=== PATIENT | female | born 1935 | race Caucasian/White ===

== ENCOUNTER 2017-04-19 23:21 | Inpatient (IN) | payer OTHER ==
[~2017-04-19] VITALS: Ht 152.4 cm; Wt 41.7 kg
[2017-04-19 23:40] LABS: CREATININE 1.5 mg/dL (0.6-1.3); POTASSIUM 4.3 mEq/L (3.7-5.4)
[2017-04-19 23:42] LABS: POINT-OF-CARE METER ID UU13113747
[2017-04-19 23:56] LABS: INTER. NORMALIZED RATIO 0.9
[2017-04-19 23:59] LABS: PTT 30.1 SEC (25-37)
[2017-04-20 00:06] LABS: EOSINOPHIL (%) 10.9 % (0-5); IMMATURE GRANULOCYTE (%) 0.2 % (0.0-0.7); INSTRUMENT ABS NEUTROPHIL CT 5.3 K/uL; LYMPHOCYTE COUNT 1.9 K/uL (1.0-2.8); MCH 30.8 PG (29.0-34.0); MCHC 32.8 G/DL (30.0-36.0); MCV 94.2 FL (83-99); MONOCYTE (%) 8.1 % (3-12); MONOCYTE COUNT 0.7 K/uL (0-0.8); NEUTROPHIL (%) 59.7 % (45-76); NEUTROPHIL COUNT 5.3 K/uL (1.8-6.4); PLATELET COUNT 208 K/uL (156-360); RBC DIS.WIDTH-SD 51.5 % (39-53); RED BLOOD COUNT 3.08 M/uL (3.80-5.20); WHITE BLOOD COUNT 8.9 K/uL (4.1-10.2)
[2017-04-20 00:09] LABS: TROP-I INTERPRETATION NEGATIVE; TROPONIN-I < 0.01 ng/mL (0.0-0.30)
[2017-04-20 00:17] LABS: CHLORIDE 108 mEq/L (99-109); POTASSIUM 4.4 mEq/L (3.7-5.4); SODIUM 142 mEq/L (136-147)
[2017-04-20 00:19] LABS: GLUCOSE 115 mg/dL (70-99)
[2017-04-20 00:20] LABS: ANION GAP 12 MEQ/L (2-14)
[2017-04-20 00:23] LABS: GFR ESTIMATE (CALCULATED) 38 mL/min/
[2017-04-20 00:24] LABS: UREA NITROGEN (BUN) 32 mg/dL (9-23)
[2017-04-20 01:44] LABS: HDL CHOLESTEROL 52 MG/DL (Desirable>=50); LDL CHOLESTEROL 53 mg/dL (Desirable<100); NON-HDL CHOLESTEROL 77 mg/dL (Desirable<160); TOTAL CHOLESTEROL 129 mg/dL (Desirable<200); TRIGLYCERIDES 118 MG/DL (Normal: <150)
[2017-04-20 07:15] LABS: Estimated Average Glucose 148 mg/dL (70-123); HEMOGLOBIN A1c (GLYCOHEMOGLOB) 6.8 % HGB (Below 5.7)
[2017-04-20 07:25] VITALS: BP 153/68
[2017-04-20 09:33] LABS: HEMATOCRIT 34.9 % (36.0-46.0); MCH 31.9 PG (29.0-34.0); MCHC 33.8 G/DL (30.0-36.0); MCV 94.3 FL (83-99); MEAN PLAT.VOLUME 11.5 uM^3 (9.5-12.4); PLATELET COUNT 248 K/uL (156-360); RBC DIS.WIDTH-CV 14.9 % (11.8-14.6); RBC DIS.WIDTH-SD 51.5 % (39-53); WHITE BLOOD COUNT 10.7 K/uL (4.1-10.2)
[2017-04-20 09:41] LABS: ANION GAP 9 MEQ/L (2-14); CHLORIDE 103 MEQ/L (99-109); GFR ESTIMATE (CALCULATED) 42 mL/min/; GLUCOSE 106 mg/dL (70-99); POTASSIUM 3.9 MEQ/L (3.7-5.4); SAMPLE HEMOLYSIS CHECK 0; SAMPLE ICTERIC CHECK 0; SAMPLE LIPEMIA CHECK 0; SODIUM 141 MEQ/L (136-147); UREA NITROGEN (BUN) 25 mg/dL (9-23)
[2017-04-20 10:53] LABS: BASE EXCESS 3.5 mEq/L (-3 to +3); BICARBONATE 28.5 mEq/L (22-26); CARBOXY HGB 1.1 % (0-5); COMMENTS - BLOOD GASES A+C+; FI02 0.21 %; METHEMOGLOBIN 1.2 % (0-1.5); PCO2 44 mm Hg (35-45); PO2 81 mm Hg (80-100); SITE RR; pH 7.42 (7.35-7.45)
[2017-04-20 11:38] VITALS: BP 167/77
[2017-04-20] MEDS ORDERED: ASPIRIN81 M2 PO (13:46)
[2017-04-20] MEDS ORDERED: LIPITOR80 MG PO (13:46)
[2017-04-20] MEDS ORDERED: NORVASC5 MG PO (13:46)
[2017-04-20] MEDS ORDERED: DEPAKOTE ER250 MG PO (13:47)
[2017-04-20] MEDS ORDERED: COLACE100 MG PO (13:47)
[2017-04-20] MEDS ORDERED: BISOPROLOL FUMAR5 MG PO (13:47)
[2017-04-20] MEDS ORDERED: ARICEPT10 MG PO (13:48)
[2017-04-20] MEDS ORDERED: ZETIA10 MG PO (13:48)
[2017-04-20] MEDS ORDERED: ATIVAN0.5 MG PO (13:48)
[2017-04-20] MEDS ORDERED: LAMICTAL150 M1 PO (13:48)
[2017-04-20] MEDS ORDERED: MELATONIN5 M1 PO (13:49)
[2017-04-20] MEDS ORDERED: DAILY VITE1 EAC1 PO (13:50)
[2017-04-20] MEDS ORDERED: TYLENOL REGULA325 MG PO (13:50)
[2017-04-20] MEDS ORDERED: CALMOSEPTINE O3.5 GM TP (13:50)
[2017-04-20 15:35] LABS: ADD MIUA? NO; BILIRUBIN NEGATIVE; BLOOD NEGATIVE; COLOR YELLOW ((YELLOW)); GLUCOSE (STRIP) NEGATIVE; KETONES 5; LEUKOCYTES NEGATIVE; NITRITE NEGATIVE; PROTEIN (STRIP) NEGATIVE; SPECIFIC GRAVITY 1.018 (1.000-1.030); UROBILINOGEN 0.2 MG/DL (0.2-1.0)
[2017-04-20 15:58] LABS: UCUL ADDED? NO
[2017-04-20 16:04] VITALS: BP 160/64
[2017-04-20 23:42] VITALS: BP 152/59
[2017-04-21 06:50] LABS: HEMATOCRIT 35.7 % (36.0-46.0); MCH 30.1 PG (29.0-34.0); MCHC 32.5 G/DL (30.0-36.0); MCV 92.7 FL (83-99); MEAN PLAT.VOLUME 11.4 uM^3 (9.5-12.4); PLATELET COUNT 254 K/uL (156-360); RBC DIS.WIDTH-CV 14.5 % (11.8-14.6); RBC DIS.WIDTH-SD 49.6 % (39-53); RED BLOOD COUNT 3.85 M/uL (3.80-5.20); WHITE BLOOD COUNT 10.2 K/uL (4.1-10.2)
[2017-04-21 07:43] VITALS: BP 157/97
[2017-04-21 15:36] VITALS: BP 172/70
[2017-04-21 23:39] VITALS: BP 152/79
[2017-04-22 08:00] VITALS: BP 116/56
[2017-04-22 15:21] VITALS: BP 111/55
[2017-04-22 18:29] VITALS: BP 137/68
[2017-04-22 23:38] VITALS: BP 110/71
[2017-04-23 08:05] VITALS: BP 128/63
[2017-04-23 16:09] VITALS: BP 136/63
[2017-04-23 23:54] VITALS: BP 150/65
[2017-04-24 07:24] VITALS: BP 155/71
[2017-04-24 15:13] VITALS: BP 146/66
[2017-04-24 23:54] VITALS: BP 144/67
[2017-04-25 07:18] VITALS: BP 130/62
[2017-04-25 09:27] LABS: ANION GAP 12 MEQ/L (2-14); CHLORIDE 102 MEQ/L (99-109); GFR ESTIMATE (CALCULATED) 46 mL/min/; GLUCOSE 227 mg/dL (70-99); POTASSIUM 3.8 MEQ/L (3.7-5.4); SAMPLE HEMOLYSIS CHECK 0; SAMPLE ICTERIC CHECK 0; SAMPLE LIPEMIA CHECK 0; SODIUM 140 MEQ/L (136-147)
[2017-04-25 09:28] LABS: UREA NITROGEN (BUN) 38 mg/dL (9-23)
[2017-04-25 15:14] VITALS: BP 132/61
[2017-04-25 20:16] VITALS: BP 143/66
[2017-04-26] VITALS: BP 135/66
[2017-04-26 03:24] VITALS: BP 125/61
[2017-04-26 06:46] LABS: HEMATOCRIT 32.6 % (36.0-46.0); MCH 30.3 PG (29.0-34.0); MCHC 33.1 G/DL (30.0-36.0); MCV 91.6 FL (83-99); MEAN PLAT.VOLUME 11.7 uM^3 (9.5-12.4); PLATELET COUNT 296 K/uL (156-360); RBC DIS.WIDTH-CV 15.8 % (11.8-14.6); RBC DIS.WIDTH-SD 53.3 % (39-53); RED BLOOD COUNT 3.56 M/uL (3.80-5.20); WHITE BLOOD COUNT 27.3 K/uL (4.1-10.2)
[2017-04-26 08:06] VITALS: BP 148/67
[2017-04-26 11:52] VITALS: BP 110/51
[2017-04-26 15:29] VITALS: BP 131/58
[2017-04-26 16:36] LABS: ADD MIUA? YES; BILIRUBIN NEGATIVE; BLOOD SMALL; COLOR YELLOW ((YELLOW)); GLUCOSE (STRIP) 50; KETONES NEGATIVE; LEUKOCYTES NEGATIVE; NITRITE NEGATIVE; PROTEIN (STRIP) 100; SPECIFIC GRAVITY 1.026 (1.000-1.030); UROBILINOGEN 0.2 MG/DL (0.2-1.0)
[2017-04-26 17:44] LABS: CASTS PRESENT /LPF; EPITHELIAL CELLS NONE SEEN /HPF; MUCUS NONE SEEN /LPF
[2017-04-26 17:45] LABS: BACTERIA 2+ /HPF; RED BLOOD CELLS NONE SEEN /HPF (0-5); UCUL ADDED? YES; WHITE BLOOD CELLS 0-5 /HPF (0-5)
[2017-04-26 17:46] LABS: AMORPHOUS URATES CRYSTALS 2+; CRYSTALS PRESENT
[2017-04-26 20:02] VITALS: BP 125/55
[2017-04-27] VITALS (7 sets, daily range): BP systolic 99–142; BP diastolic 48–65
[2017-04-27 08:55] LABS: HEMATOCRIT 26.7 % (36.0-46.0); MCH 31.1 PG (29.0-34.0); MCHC 33.7 G/DL (30.0-36.0); MCV 92.4 FL (83-99); MEAN PLAT.VOLUME 11.6 uM^3 (9.5-12.4); PLATELET COUNT 290 K/uL (156-360); RBC DIS.WIDTH-CV 16.5 % (11.8-14.6); RBC DIS.WIDTH-SD 55.5 % (39-53); RED BLOOD COUNT 2.89 M/uL (3.80-5.20); WHITE BLOOD COUNT 27.6 K/uL (4.1-10.2)
[2017-04-27 09:32] LABS: ABS NEUTROPHIL COUNT 24.7; ANISOCYTOSIS 1+; BAND NEUTROPHILS 2.6 % (0-8.0); EOSINOPHIL ABS CT 0; INSTRUMENT ABS NEUTROPHIL CT 24.4 K/uL; LYMPHOCYTES 6.5 % (15.0-45.0); MACROCYTES 1+; PLAT.SUFFICIENCY ADEQUATE; POIKILOCYTOSIS 1+; SMUDGE CELLS 0.4
[2017-04-27 10:18] LABS: ANION GAP 14 MEQ/L (2-14); CHLORIDE 111 MEQ/L (99-109); GLUCOSE 179 mg/dL (70-99); POTASSIUM 4.1 MEQ/L (3.7-5.4); SAMPLE HEMOLYSIS CHECK 0; SAMPLE ICTERIC CHECK 0; SAMPLE LIPEMIA CHECK 0; SODIUM 147 MEQ/L (136-147)
[2017-04-27 10:19] LABS: GFR ESTIMATE (CALCULATED) 18 mL/min/; UREA NITROGEN (BUN) 87 mg/dL (9-23)
[2017-04-27 11:24] LABS: C DIFF TOXIN NEGATIVE (NEGATIVE)
[2017-04-27 11:28] LABS: PROBE CHECK PASS; SPECIMEN PROCESSING CONTROL PASS
[2017-04-28] VITALS (8 sets, daily range): BP systolic 100–168; BP diastolic 50–73
[2017-04-28 09:16] LABS: HEMATOCRIT 26.6 % (36.0-46.0); MCH 30.4 PG (29.0-34.0); MCHC 33.1 G/DL (30.0-36.0); MEAN PLAT.VOLUME 11.6 uM^3 (9.5-12.4); PLATELET COUNT 304 K/uL (156-360); RBC DIS.WIDTH-CV 16.7 % (11.8-14.6); RBC DIS.WIDTH-SD 56.1 % (39-53); RED BLOOD COUNT 2.89 M/uL (3.80-5.20); WHITE BLOOD COUNT 26.9 K/uL (4.1-10.2)
[2017-04-28 10:01] LABS: ALKALINE PHOSPHATASE 197 IU/L (3-129); ANION GAP 16 MEQ/L (2-14); CHLORIDE 121 MEQ/L (99-109); GFR ESTIMATE (CALCULATED) 15 mL/min/; GLUCOSE 180 mg/dL (70-99); SAMPLE HEMOLYSIS CHECK 0; SAMPLE ICTERIC CHECK 0; SAMPLE LIPEMIA CHECK 0; TOTAL BILIRUBIN 0.4 MG/DL (0.0-1.0)
[2017-04-28 10:05] LABS: POTASSIUM 3.8 MEQ/L (3.7-5.4); SODIUM 156 MEQ/L (136-147); UREA NITROGEN (BUN) 101 mg/dL (9-23)
[2017-04-28 17:21] LABS: INTERNAL CONTROL VALID? YES
[2017-04-28 21:15] LABS: MCV 93.4 FL (83-99)
[2017-04-29 00:57] LABS: HEMATOCRIT 24.1 % (36.0-46.0); MCV 91.6 FL (83-99)
[2017-04-29 04:04] VITALS: BP 131/63
[2017-04-29 05:50] LABS: HEMATOCRIT 25.7 % (36.0-46.0); MCH 30.1 PG (29.0-34.0); MCHC 32.3 G/DL (30.0-36.0); MCV 93.1 FL (83-99); MEAN PLAT.VOLUME 11.5 uM^3 (9.5-12.4); NRBC (%) 0.3 /100 WBC (0-0); PLATELET COUNT 323 K/uL (156-360); RBC DIS.WIDTH-SD 57.9 % (39-53); RED BLOOD COUNT 2.76 M/uL (3.80-5.20); WHITE BLOOD COUNT 24.6 K/uL (4.1-10.2)
[2017-04-29 06:30] LABS: ALKALINE PHOSPHATASE 203 IU/L (3-129); ANION GAP 14 MEQ/L (2-14); CHLORIDE 119 MEQ/L (99-109); GLUCOSE 197 mg/dL (70-99); POTASSIUM 3.3 MEQ/L (3.7-5.4); SAMPLE HEMOLYSIS CHECK 0; SAMPLE ICTERIC CHECK 0; SAMPLE LIPEMIA CHECK 0; SODIUM 153 MEQ/L (136-147); TOTAL BILIRUBIN 0.4 MG/DL (0.0-1.0); UREA NITROGEN (BUN) 84 mg/dL (9-23)
[2017-04-29 06:42] LABS: GFR ESTIMATE (CALCULATED) 19 mL/min/
[2017-04-29 08:03] LABS: ABS NEUTROPHIL COUNT 20.3; ANISOCYTOSIS 1+; BAND NEUTROPHILS 3.5 % (0-8.0); EOSINOPHIL ABS CT 0; INSTRUMENT ABS NEUTROPHIL CT 18.3 K/uL; LYMPHOCYTES 6.5 % (15.0-45.0); PLAT.SUFFICIENCY ADEQUATE
[2017-04-29 08:20] VITALS: BP 132/58
[2017-04-29 11:52] VITALS: BP 136/64
[2017-04-29 12:28] LABS: HEMATOCRIT 24.3 % (36.0-46.0); MCV 93.8 FL (83-99)
[2017-04-29 13:20] LABS: ANION GAP 14 MEQ/L (2-14); CHLORIDE 117 MEQ/L (99-109); GFR ESTIMATE (CALCULATED) 22 mL/min/; GLUCOSE 280 mg/dL (70-99); POTASSIUM 3.4 MEQ/L (3.7-5.4); SAMPLE HEMOLYSIS CHECK 0; SAMPLE ICTERIC CHECK 0; SAMPLE LIPEMIA CHECK 0; SODIUM 150 MEQ/L (136-147); UREA NITROGEN (BUN) 78 mg/dL (9-23)
[2017-04-29 16:28] VITALS: BP 136/63
[2017-04-29 18:51] LABS: HEMATOCRIT 33.5 % (36.0-46.0); MCV 91.8 FL (83-99)
[2017-04-29 20:20] VITALS: BP 163/71
[2017-04-29 23:31] VITALS: BP 127/48
[2017-04-30 00:41] LABS: HEMATOCRIT 22.1 % (36.0-46.0); MCV 89.8 FL (83-99)
[2017-04-30 02:08] LABS: HEMATOCRIT 25.4 % (36.0-46.0); MCV 90.4 FL (83-99)
[2017-04-30 04:36] VITALS: BP 157/55
[2017-04-30 05:45] LABS: HEMATOCRIT 24.6 % (36.0-46.0); MCH 29.7 PG (29.0-34.0); MCHC 32.5 G/DL (30.0-36.0); MCV 91.4 FL (83-99); MEAN PLAT.VOLUME 11.3 uM^3 (9.5-12.4); NRBC (%) 0.4 /100 WBC (0-0); PLATELET COUNT 368 K/uL (156-360); RBC DIS.WIDTH-CV 16.8 % (11.8-14.6); RED BLOOD COUNT 2.69 M/uL (3.80-5.20); WHITE BLOOD COUNT 22.2 K/uL (4.1-10.2)
[2017-04-30 06:08] LABS: ANION GAP 11 MEQ/L (2-14); CHLORIDE 118 MEQ/L (99-109); GFR ESTIMATE (CALCULATED) 23 mL/min/; GLUCOSE 168 mg/dL (70-99); MAGNESIUM 2.1 mg/dl (1.3-2.7); POTASSIUM 3.7 MEQ/L (3.7-5.4); SAMPLE HEMOLYSIS CHECK 0; SAMPLE ICTERIC CHECK 0; SAMPLE LIPEMIA CHECK 0; SODIUM 148 MEQ/L (136-147); UREA NITROGEN (BUN) 67 mg/dL (9-23)
[2017-04-30 07:45] VITALS: BP 152/66
[2017-04-30 07:50] LABS: ABS NEUTROPHIL COUNT 18.9; ANISOCYTOSIS 1+; EOSINOPHILS 4.5 % (0-5.0); INSTRUMENT ABS NEUTROPHIL CT 17.2 K/uL; LYMPHOCYTES 6.5 % (15.0-45.0); MACROCYTES 1+; METAMYELOCYTES 1.5 %; MYELOCYTES 0.5 %; NUCLEATED RBC'S 0.5; PLAT.SUFFICIENCY ADEQUATE; POIKILOCYTOSIS 1+; POLYCHROMASIA 1+; SPHEROCYTES 1+; TARGET CELLS 1+
[2017-04-30 09:56] LABS: ALKALINE PHOSPHATASE 185 IU/L (3-129); DIRECT BILIRUBIN 0.1 mg/dL (0.0-0.3); TOTAL BILIRUBIN 0.4 MG/DL (0.0-1.0)
[2017-04-30 12:27] VITALS: BP 136/63
[2017-04-30 16:10] VITALS: BP 145/64
[2017-04-30 17:34] LABS: C DIFF TOXIN ND (NEGATIVE)
[2017-04-30 20:10] VITALS: BP 145/58
[2017-05-01] VITALS (7 sets, daily range): BP systolic 137–178; BP diastolic 58–81
[2017-05-01 05:45] LABS: HEMATOCRIT 23.1 % (36.0-46.0); MCHC 33.8 G/DL (30.0-36.0); MCV 91.7 FL (83-99); MEAN PLAT.VOLUME 11.5 uM^3 (9.5-12.4); NRBC (%) 0.4 /100 WBC (0-0); PLATELET COUNT 401 K/uL (156-360); RBC DIS.WIDTH-SD 57.1 % (39-53); RED BLOOD COUNT 2.52 M/uL (3.80-5.20); WHITE BLOOD COUNT 22.2 K/uL (4.1-10.2)
[2017-05-01 06:19] LABS: ALKALINE PHOSPHATASE 173 IU/L (3-129); ANION GAP 13 MEQ/L (2-14); CHLORIDE 120 MEQ/L (99-109); GFR ESTIMATE (CALCULATED) 24 mL/min/; GLUCOSE 159 mg/dL (70-99); POTASSIUM 3.7 MEQ/L (3.7-5.4); SAMPLE HEMOLYSIS CHECK 0; SAMPLE ICTERIC CHECK 0; SAMPLE LIPEMIA CHECK 0; SODIUM 153 MEQ/L (136-147); TOTAL BILIRUBIN 0.4 MG/DL (0.0-1.0); UREA NITROGEN (BUN) 58 mg/dL (9-23)
[2017-05-01 07:01] LABS: ABS NEUTROPHIL COUNT 17.8; ANISOCYTOSIS 1+; EOSINOPHIL ABS CT 0.7; HEMATOLOGY COMMENT 1 SMEAR COMPATIBLE; INSTRUMENT ABS NEUTROPHIL CT 17.6 K/uL; MACROCYTES 1+; PLAT.SUFFICIENCY INCREASED; POIKILOCYTOSIS 1+; POLYCHROMASIA 1+; SPHEROCYTES 1+; TARGET CELLS 1+
[2017-05-01 17:52] LABS: POINT-OF-CARE METER ID UU14314088; POINT-OF-CARE USER ID ENVKC36
[2017-05-01 18:23] LABS: HEMATOCRIT 23.6 % (36.0-46.0); MCH 31.4 PG (29.0-34.0); MCHC 33.9 G/DL (30.0-36.0); MCV 92.5 FL (83-99); MEAN PLAT.VOLUME 11.3 uM^3 (9.5-12.4); NRBC (%) 0.3 /100 WBC (0-0); PLATELET COUNT 462 K/uL (156-360); RBC DIS.WIDTH-CV 17.2 % (11.8-14.6); RBC DIS.WIDTH-SD 58.4 % (39-53); RED BLOOD COUNT 2.55 M/uL (3.80-5.20); WHITE BLOOD COUNT 21.6 K/uL (4.1-10.2)
[2017-05-01 18:48] LABS: ALKALINE PHOSPHATASE 170 IU/L (3-129); ANION GAP 12 MEQ/L (2-14); CHLORIDE 117 MEQ/L (99-109); GFR ESTIMATE (CALCULATED) 29 mL/min/; GLUCOSE 219 mg/dL (70-99); POTASSIUM 3.3 MEQ/L (3.7-5.4); SAMPLE HEMOLYSIS CHECK 0; SAMPLE ICTERIC CHECK 0; SAMPLE LIPEMIA CHECK 0; SODIUM 150 MEQ/L (136-147); TOTAL BILIRUBIN 0.4 MG/DL (0.0-1.0); UREA NITROGEN (BUN) 52 mg/dL (9-23)
[2017-05-01 19:02] LABS: ABS NEUTROPHIL COUNT 19.1; BAND NEUTROPHILS 0.8 % (0-8.0); EOSINOPHIL ABS CT 0; INSTRUMENT ABS NEUTROPHIL CT 17.9 K/uL; LYMPHOCYTES 3.5 % (15.0-45.0); METAMYELOCYTES 0.9 %; MYELOCYTES 0.9 %; NUCLEATED RBC'S 1.7; SEG.NEUTROPHILS 87.8 % (46.0-76.0)
[2017-05-02 04:50] VITALS: BP 163/74
[2017-05-02 05:13] LABS: EOSINOPHIL (%) 2.2 % (0-5); EOSINOPHIL COUNT 0.5 K/uL (0-0.3); HEMATOCRIT 28.1 % (36.0-46.0); IMMATURE GRANULOCYTE (%) 4.8 % (0.0-0.7); IMMATURE GRANULOCYTE COUNT 1.1 K/uL; INSTRUMENT ABS NEUTROPHIL CT 18.6 K/uL; LYMPHOCYTE COUNT 1.5 K/uL (1.0-2.8); MCH 30.4 PG (29.0-34.0); MCHC 32.4 G/DL (30.0-36.0); MONOCYTE (%) 3.9 % (3-12); MONOCYTE COUNT 0.9 K/uL (0-0.8); NEUTROPHIL (%) 82.3 % (45-76); NEUTROPHIL COUNT 18.6 K/uL (1.8-6.4); NRBC (%) 0.3 /100 WBC (0-0); RBC DIS.WIDTH-CV 17.1 % (11.8-14.6); RBC DIS.WIDTH-SD 58.1 % (39-53); RED BLOOD COUNT 2.99 M/uL (3.80-5.20); WHITE BLOOD COUNT 22.6 K/uL (4.1-10.2)
[2017-05-02 05:27] LABS: CHLORIDE 114 mEq/L (99-109); POTASSIUM 3.8 mEq/L (3.7-5.4); SODIUM 148 mEq/L (136-147)
[2017-05-02 05:29] LABS: GLUCOSE 192 mg/dL (70-99)
[2017-05-02 05:31] LABS: ANION GAP 16 MEQ/L (2-14)
[2017-05-02 05:33] LABS: GFR ESTIMATE (CALCULATED) 33 mL/min/
[2017-05-02 05:34] LABS: UREA NITROGEN (BUN) 46 mg/dL (9-23)
[2017-05-02 06:15] LABS: MEAN PLAT.VOLUME 11.3 uM^3 (9.5-12.4); PLAT.SUFFICIENCY INCREASED; PLATELET COUNT 486 K/uL (156-360)
[2017-05-02 07:35] VITALS: BP 175/77
[2017-05-03 00:20] VITALS: BP 165/70
[2017-05-03 07:47] VITALS: BP 157/77
[2017-05-03] MEDS ORDERED: MORPHINE CON20 MG/M1 PO (15:00)
[2017-05-03] MEDS ORDERED: ATIVAN INTE2 MG/1 ML PO (15:00)
[2017-05-03] MEDS ORDERED: HYOSCYAMINE0.125 M1 SL (15:00)
== END 2017-05-03 17:09 | disposition hospice, home (50) | DRG 64 ==
LOC: EME 23:21 → 4EAST 04-20 03:33 → 5SOUTH 04-20 03:33 → EDOF 04-20 03:33 → ENRESERV 04-20 03:34 → 5SOUTH 04-20 06:11 → ENRESERV 04-28 19:18 → 4EAST 04-28 20:27
PROVIDERS: Emergency Medicine; Hospitalist; Internal Medicine; Internal Medicine Nephrology; Nurse Practitioner Adult Health; Physician Assistant Medical
DX: I63.9 Cerebral infarction, unspecified (principal); G30.9 Alzheimer's disease, unspecified; F02.81 Dementia in other diseases classified elsewhere, unspecified severity, with behavioral disturbance; F01.50 Vascular dementia, unspecified severity, without behavioral disturbance, psychotic disturbance, mood disturbance, and anxiety; E87.0 Hyperosmolality and hypernatremia; E87.6 Hypokalemia; Z66 Do not resuscitate; R47.81 Slurred speech; G81.94 Hemiplegia, unspecified affecting left nondominant side; R29.810 Facial weakness; R29.705 NIHSS score 5; F05 Delirium due to known physiological condition; I65.22 Occlusion and stenosis of left carotid artery; G40.909 Epilepsy, unspecified, not intractable, without status epilepticus; N17.0 Acute kidney failure with tubular necrosis; T50.8X5A Adverse effect of diagnostic agents, initial encounter; N18.3 Chronic kidney disease, stage 3 (moderate); E87.2 Acidosis; I48.0 Paroxysmal atrial fibrillation; Z51.5 Encounter for palliative care; K72.90 Hepatic failure, unspecified without coma; N14.1 Nephropathy induced by other drugs, medicaments and biological substances; D62 Acute posthemorrhagic anemia; M62.89 Other specified disorders of muscle; I12.9 Hypertensive chronic kidney disease with stage 1 through stage 4 chronic kidney disease, or unspecified chronic kidney disease; D68.32 Hemorrhagic disorder due to extrinsic circulating anticoagulants; T45.515A Adverse effect of anticoagulants, initial encounter; Y92.239 Unspecified place in hospital as the place of occurrence of the external cause; E86.0 Dehydration; E78.5 Hyperlipidemia, unspecified; I73.9 Peripheral vascular disease, unspecified; I48.92 Unspecified atrial flutter; I07.1 Rheumatic tricuspid insufficiency; J98.11 Atelectasis
CPT/HCPCS: 36600; 70450; 70496; 70498; 70551; 71010; 71250; 73030; 74176; 74230; 76770; 80047; 80048; 80048 91; 80053; 80061; 80076; 80164; 81003; 82140; 82272; 82607; 82803; 82948; 83036; 83605; 83735; 83930; 83935; 84100; 84300; 84443; 84484; 85014; 85018; 85025; 85025 91; 85027; 85610; 85730; 86850; 86900; 86901; 87040; 87086; 87493; 92526 GN; 92610 GN; 92611 GN; 93005; 93306; 93880; 93970; 94799; 97530 GP; 99281; 99285; J1644; J2060; J2543; J3480; J7030; J7040; J7050; J7070